=== PATIENT | male | born 1945 | race Two or more races ===

== ENCOUNTER → 2019-09-02 | Outpatient (CLI) | payer OTHER ==
[~2019-09-02] MED LIST: CRESTOR20 MG; LISINOPRIL10 MG
== END | disposition home or self-care (01) ==
LOC: RAD 12:36
DX: M79.641 Pain in right hand (principal)

== ENCOUNTER 2022-03-10 08:39 | Outpatient (CLI) | payer OTHER | END 2022-03-10 08:45 | disposition home or self-care (01) | LOC: LAB 08:39 | PROVIDERS: ATTEND Radiology Diagnostic Radiology | DX: K57.32 Diverticulitis of large intestine without perforation or abscess without bleeding (principal) ==

== ENCOUNTER 2022-03-11 07:02 | Outpatient (CLI) | payer OTHER | END 2022-03-11 07:35 | disposition home or self-care (01) | LOC: TOM 07:02 | DX: K57.32 Diverticulitis of large intestine without perforation or abscess without bleeding (principal) ==

== ENCOUNTER 2022-06-14 07:22 | Outpatient (CLI) | payer OTHER | END 2022-06-14 07:25 | disposition home or self-care (01) | LOC: SONOGRAMA 07:22 | DX: N40.1 Benign prostatic hyperplasia with lower urinary tract symptoms (principal) ==

== ENCOUNTER 2023-01-04 12:53 | Outpatient (CLI) | payer OTHER | END 2023-01-04 13:01 | disposition home or self-care (01) | LOC: SONOGRAMA 12:53 | DX: N28.9 Disorder of kidney and ureter, unspecified (principal) ==

== ENCOUNTER 2023-08-02 09:13 | Outpatient (CLI) | payer OTHER | END 2023-08-02 09:18 | disposition home or self-care (01) | LOC: SONOGRAMA 09:13 | PROVIDERS: ATTEND Urology | DX: N40.1 Benign prostatic hyperplasia with lower urinary tract symptoms (principal) ==

== ENCOUNTER 2023-11-09 10:40 | Outpatient (CLI) | payer OTHER | END 2023-11-09 10:48 | disposition home or self-care (01) | LOC: MRI 10:40 | PROVIDERS: ATTEND Otolaryngology Otology & Neurotology | DX: R42 Dizziness and giddiness (principal) | CPT/HCPCS: 70553; Q9965; 70552 ==